=== PATIENT | female | born 1960 | race Caucasian/White ===

== ENCOUNTER 2023-04-30 10:36 | Day surgery (SDC) | payer BC ==
[2023-04-30] VITALS (10 sets, daily range): BP systolic 111–150; BP diastolic 47–73; PULSE 52–62; TEMP 97.2–97.5
[~2023-04-30] VITALS: Ht 170.2 cm; Wt 68.0 kg
[~2023-04-30 10:36] MED LIST: ALEVE 220MG220 MG PO; FLOMAX 0.40.4 MG/CAP PO; LOPRESSOR 225 MG/TAB PO; MEVACOR40 MG PO; MOBIC15 MG PO; NORCO 325 MG-51 TAB PO; PRILOSEC 20MG20 MG PO; SYNTHROID 0.0.025 MG PO; ZOLOFT 50MG50 MG PO
[2023-04-30] MEDS ORDERED: NORCO 325 MG-51 TAB PO (14:25)
[2023-04-30] MEDS ORDERED: MACROBID 1100 MG/CAP PO (16:00)
--- NOTE | 2023-04-30 17:15 | NUR ---
1442 PATIENT RETURNS TO ROOM 3 PER CART. AWAKE, ALERT RESP UNLABORED. U[ON ARRIVAL TO ROOM PATIENT IMMEDIATELY EXPRESSES PRESENCE OF LEFT LOWER ABD AREA PAIN. ABD SOFT. VITAL SIGNS OBTAINED. AND SISTER IN ROOM. CALL LIGHT AT SIDE 1457 PATIENT WITH CONTINUED ABD PAIN. REPOSITIONED ON CART. WARM BLANKET TO ABD. 1512 RATES PAIN 9/10. DESCRIBES CONTINUOUS LEFT LOWER ABD. FAMILY IN ROOM. IV FENTANYL GIVEN 1527 EYES CLOSED, BUT REPORTS ONLY MILD DECREASE IN PAIN. ADMITS TO NAUSEA WHICH PATIENT THINKS IS SECONDARY TO PAIN. NO VOMITTING 1540 REPOSITIONS ON CART TO LEFT SIDE. WARM BLANKET APPLIED TO ABD 1545 DR ADAM NOTIFIED OF CONTINUED DISCOMFORT. ORDERS RECEIVED. 1546 IV ZOFRAN GIVEN FOR CONTINUED NAUSEA. PATIENT REPOSITIONS SELF TO SUPINE POSITION. HOB ELEVATED 30 DEGREES. CONTINUED FACIAL GRIMACING. MINIMAL EYE CONTACT. 1556 TORADOL 15 MG GIVEN IV. 1605 PATIENT WITH EYES OPEN. REPORTS CONTINUED DISCOMFORT BUT, FOR FIRST TIME IS DECREASING. TOLERATES PO ICE CHIPS. 1620 AWAKE, ALERT. CONVERSES WITH SISTER. DRINKS PO WATER. REPORTS MINIMAL DISCOMFORT. GREAT EYE CONTACT. 1630 DISCHARGE INSTRUCTIONS REVIEWED WITH PATIENT AND SISTER. GONE FROM FACILITY TO GET PRESCRIPTIONS. COPY OF INSTRUCTIONS PROVIDED IN DISCHARGE FOLDER 1645 HOB ELEVATED 70 DEGREES. TOLERATES PO WATER WITHOUT NAUSEA 1700 PATIENT REPORTS MILD DISCOMFORT, 1/10. AMBULATES TO BATHROOM WITH STANDBY ASSIST. REPORTS VOIDED LIGHT PINK URINE WITHOUT DIFFICULTY. DRESSES SELF. 1610 PATIENT AWAKE. REPORTS DECREASING DISCOMFORT. CONVERSES SOME.
== END 2023-04-30 17:15 | disposition home or self-care (01) ==
LOC: SDCO 10:36
DX: N20.1 Calculus of ureter (principal)
CPT/HCPCS: C1769; C2617; J0690; J1885; J2405; J2704; J3010; J7120